=== PATIENT | male | born 2000 | race Caucasian/White ===

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

== ENCOUNTER → 2023-12-19 | Outpatient (CLI) | payer BC ==
[~2023-12-19] VITALS: Ht 188 cm; Wt 86.4 kg
[~2023-12-19] MED LIST: Triamcinolone 40 MG/ML 1 ML VIAL IJ SCH
[2023-12-19 08:20] VITALS: BP 134/86; PULSE 109; TEMP 98.5
[2023-12-19 09:00] VITALS: BP 142/95; PULSE 96
== END ==
LOC: COL.RAD 08:08
DX: M48.062 Spinal stenosis, lumbar region with neurogenic claudication (principal); M51.26 Other intervertebral disc displacement, lumbar region
CPT/HCPCS: J0665; J3301